=== PATIENT | male | born 1990 | race Caucasian/White ===

== ENCOUNTER 2024-02-28 08:53 | Emergency (ER) | payer MEDICARE, MEDICAID, SELFPAY ==
--- NOTE | 2024-02-28 09:00 | DI.RAD_ITS ---
Exam(s) XR ELBOW RT COMPLETE EXAM: XR ELBOW RT COMPLETE CLINICAL HISTORY: Right elbow pain. TECHNIQUE: 2D digital imaging was performed. COMPARISON: No exams were available for comparison FINDINGS: 3 views No evidence of fracture or joint effusion. No swelling of the olecranon bursa. Radial head and neck unremarkable. Capitellum unremarkable. Epicondyles unremarkable. Bone density normal. No osseous lesions. No loose intra-articular bodies. IMPRESSION: No significant osseous findings in the elbow. DATA REPOSITORY: RADIATION DOSE DELIVERED:
[2024-02-28 09:02] VITALS: BP 141/77; PULSE 80; RESP 16; TEMP 36.7; O2SAT 99
--- NOTE | 2024-02-28 09:12 | ED.GENADUL_ITS ---
Discharge Plan Disposition Patient Disposition: Home Discharge Details Clinical Impression: Pain in right elbow Primary Care Provider: Gio Russell ED Provider: Quique Peres Home Meds and New Rx's Prescriptions: Continued bupropion HCl 75 mg tablet 225 mg PO QPM Patient Comments: TAKE THREE TABLETS BY MOUTH EVERY DAY hydrocortisone 2.5 % cream 1 applic TOPICAL BID Patient Comments: APPLY THIN LAYER TO THE AFFECTED AREAS TWO TIMES A DAY bupropion HCl 150 mg tablet extended release 24 hr 150 mg PO QAM Patient Comments: TAKE ONE TABLET BY MOUTH EVERY DAY topiramate 50 mg tablet 50 mg PO DAILY Patient Comments: TAKE ONE TABLET BY MOUTH EVERY MORNING AND TAKE THREE TABLETS BY MOUTH EVERY EVENING Pulmicort Flexhaler 180 mcg/actuation aerosol powdr breath activated 1 inh INHALATION DAILY Patient Comments: INHALE ONE PUFF BY MOUTH EVERY DAY acetylcysteine 600 mg capsule 600 mg PO BID Patient Comments: TAKE ONE CAPSULE BY MOUTH TWICE A DAY Anoro Ellipta 62.5-25 mcg/actuation blister with device 1 inh INHALATION DAILY Patient Comments: INHALE ONE PUFF BY MOUTH EVERY DAY Asmanex HFA 200 mcg/actuation HFA aerosol inhaler 1 puff INHALATION BID Patient Comments: INHALE 2 PUFFS TWO TIMES A DAY Discharge Instructions Additional Instructions: He was seen in the emergency department for your right elbow pain. Your x-ray showed no signs of any fractures. As we discussed, you may have a sprain or a subtle fracture. Please follow-up with a primary care provider urgent care, or return to the emergency department if your pain is not significantly improved by the end of the week. Please certainly return to the emergency department sooner if you develop any swelling in your hand any color changes in your hand or if you cannot move your hand. Please rest your elbow for the next several days and this sling. Please wear the sling for more than 3 days as this can result in other injuries. Please ice your elbow for 20 minutes on 20 minutes off throughout the day today. For your pain please take medications as follows: 1. Take acetaminophen (Tylenol), 1,000 mg (two 500 mg tabs) every 6 hours [2. Take ibuprofen (Advil), 400 mg every 6 hours.] You may also have a ligamentous injury. Please use the sling for the next several days. Discharge Data Discharge Date/Time-TO BE ENTERED AT DEPARTURE: 02/28/24 10:32 HPI General Date/Time Provider Initiated Documentation: 02/28/24 09:12 . HPI Narrative: MDM This is an overall very well-appearing normothermic and not tachycardic ri [id number] 33-year-old male with right elbow tenderness concerning for sprain versus fracture given trauma yesterday for which patient will undergo x- ray. No pain out of proportion to suggest necrotizing soft tissue infection. Clear equal breath sounds and no shortness of breath so doubt pneumothorax so I did not obtain a chest x-ray. No history of IV drug use and no significant erythema or swelling so my suspicion for septic joint is low. Right hand warm well-perfused so I am not concerned for critical limb ischemia. No significant weakness noted neurological deficits in right upper extremity and patient has no history of thoracic rib so not suspicious for thoracic outlet syndrome. No lacerations to suggest traumatic arthropathy. No recent tick bites to suggest Lyme arthritis. No history of malignancy to suggest increased risk for pathological fractures. Will treat pain with acetaminophen and ibuprofen. 10:25 AM X-ray negative for any acute osseous abnormalities. I met with the patient and provide him a sling. I explained that he certainly could have this brain, a subtle fracture, or ligamentous injury. I advised resting his right upper extremity nonweightbearing for the next several days. I advised icing for 20 minutes on 20 minutes off and schedule acetaminophen and ibuprofen. I advised PCP follow-up, urgent care follow-up, or ED follow-up later this week if the patient had worsening pain or any pain that had not resolved. If patient had any color changes in his hand or any weakness of his hand I advised immediate ED return. Patient understood his return indications discharged with empiric trial of expectant outpatient management. HPI This is a [id number] 33-year-old male arrived to the emergency department via private vehicle in setting of right elbow pain. Patient reportedly fell skateboarding yesterday. He did not hit his head. He did not lose consciousness. He is not feeling short of breath. He denies any preceding chest pain syncope nausea or vomiting. He has pain in his right elbow. He is able to range his right arm but has limitations at the extreme points of flexion and extension. He transiently had some numbness in his fingers but this improved with rest. No prior history of fractures to his right upper extremity. No recent fevers nor right upper extremity swelling. Exam General: Well-appearing in no acute distress speaking in complete sentences. Head: Normocephalic, atraumatic. Eye: Extraocular eye movements intact. No conjunctival injection. No scleral icterus. Ear, nose, mouth, throat: Grossly normal inspection. Normal voice, handling secretions normally. Neck: Trachea midline. Cardiovascular: Well-perfused distal extremities. Respiratory: Nonlabored respiration. Clear lungs bilaterally Gastrointestinal: Nondistended abdomen. Musculoskeletal: Right upper extremity: No obvious ecchymosis erythema swelling. No lacerations. Right hand warm well- perfused with 2+ right radial pulse. Cap refill less than 2 seconds to the right fingertips. Sensation motor function intact in the right hand across the radial, median, and ulnar nerve distributions. Right arm held in full ad duction. Patient is able to abduct his right arm to approximately 90 degrees. He is able to flex his right arm at the shoulder to approximately 90 degrees. He is able to extend his right arm at the shoulder approximately 5 degrees. He is able to extend his right arm at the elbow to approximately 160 degrees. He is able to flex his right arm at the elbow to approximately 100 degrees. He has limitations in his ability to supinate his right arm. He has no tenderness throughout his proximal humerus. He does have mild distal right humeral tenderness and lateral epicondyle tenderness. No forearm tenderness. No hand tenderness. Skin: Normal for age and race, grossly normal temperature and turgor. No acute rash. Neurologic: Alert and appropriate, no apparent acute deficits. GCS 15 Psychiatric: Mood and manner are appropriate. Grooming and personal hygiene are appropriate. Related Data Home Medications ?Medication ?Instructions ?Recorded ?Confirmed acetylcysteine 600 mg capsule 600 mg PO BID 02/28/24 02/28/24 budesonide 180 mcg/actuation 1 inh inhalation DAILY 02/28/24 02/28/24 breath activated powder inhaler (Pulmicort Flexhaler) bupropion HCl 150 mg 24 hr tablet, 150 mg PO QAM 02/28/24 02/28/24 extended release bupropion HCl 75 mg tablet 225 mg PO QPM 02/28/24 02/28/24 hydrocortisone 2.5 % topical cream 1 applic topical BID 02/28/24 02/28/24 mometasone 200 mcg/actuation HFA 1 puff inhalation BID 02/28/24 02/28/24 aerosol inhaler (Asmanex HFA) topiramate 50 mg tablet 50 mg PO DAILY 02/28/24 02/28/24 umeclidinium 62.5 mcg-vilanterol 1 inh inhalation DAILY 02/28/24 02/28/24 25 mcg/actuation powdr for inhalation (Anoro Ellipta) Allergies Allergy/AdvReac Type Severity Reaction Status Date / Time divalproex sodium (From Allergy Severe Anaphylaxis Verified 02/28/24 08:58 Depakote) lamotrigine (From Lamictal) Allergy Intermediate Hives Verified 02/28/24 08:58 sulbactam Allergy Intermediate Hives Verified 02/28/24 08:58 General Stated Complaint: Orthopedic RIGO: 4 Course Vital Signs Vital signs: Vital Signs Temperature 36.7 C 02/28/24 09:02 Pulse 80 02/28/24 09:02 Respiratory Rate 16 02/28/24 09:02 Blood Pressure 141/77 H 02/28/24 09:02 Pulse Oximetry 99 02/28/24 09:02 Temperature 36.7 C 02/28/24 09:02 Temperature Source Temporal Artery Scan 02/28/24 09:02 Pulse 80 02/28/24 09:02 Respiratory Rate 16 02/28/24 09:02 Respiratory Effort Normal, Non-Labored 02/28/24 09:04 Blood Pressure 141/77 H 02/28/24 09:02 Blood Pressure Position Sitting 02/28/24 09:02 Pulse Oximetry 99 02/28/24 09:02 Oxygen Delivery Method Room Air 02/28/24 09:02 Oxygen Flow Rate 0 02/28/24 09:02 Pain Level 7 02/28/24 09:02 Medical Decision Making Quality:SDOH Health Related Social Needs: No Data to Display PFSH All Active Problems (Updated 02/28/24 @ 10:22 by Quique Peres MD) Pain in right elbow (Acute) Social History Smoking/Tobacco Use Status: Never Smoking risk assessment performed?: Yes Alcohol Intake: current Alcohol Intake frequency: holidays/special occasions only Drug use: Never Substance use type: does not use Housing: house Do you feel safe at home: Yes Do you feel safe in your relationship?: Yes Additional Social history: lives with
[2024-02-28] MEDS: Ibuprofen 600 MG TAB PO (09:59)
[2024-02-28] MEDS: Acetaminophen 500 MG TAB 1000 MG PO (09:59)
== END 2024-02-28 10:32 | disposition home or self-care (01) ==
PROVIDERS: Emergency Provider Emergency Medicine; PCP Internal Medicine
DX: M25.521 Pain in right elbow (principal); W19.XXXA Unspecified fall, initial encounter; Y93.51 Activity, roller skating (inline) and skateboarding
CPT/HCPCS: 99283; 73080